=== PATIENT | male | born 1980 ===

== ENCOUNTER → 2019-01-31 22:12 | Outpatient (REF) | payer BC, SELFPAY ==
[2019-02-03 10:34] LABS: 18 kD IgG Band Nonreactive; 23 kD IgG Band Nonreactive; 28 kD IgG Band Nonreactive; 30 kD IgG Band Nonreactive; 39 kD IgG Band Nonreactive; 41 kD IgG Bands Reactive; 45 kD IgG Band Nonreactive; 58 kD IgG Band Nonreactive; 66 kD IgG Band Reactive; 93 kD IgG Bands Nonreactive
== END ==
LOC: LAB 22:12
PROVIDERS: Visit Provider Family Medicine
DX: R25.3 Fasciculation (principal)
CPT/HCPCS: 36415; 83825; 86618